=== PATIENT | male | born 1935 | race Caucasian/White ===

== ENCOUNTER 2017-03-18 16:06 | Emergency (ER) | payer MEDICARE, BC ==
[2017-03-18 16:48] LABS: WBC (NOT ORDERED) (RFLEX) 0 (0-5)
[2017-03-18 16:59] LABS: ASCORBIC ACID (UR NOT ORDER) NEG (NEG); BILIRUBIN, URINE NEGATIVE (NEG); ER URINALYSIS TAT 0 Hrs 12 Mins; KETONE, URINE NEGATIVE (NEG); LEUKOCYTE ESTERASE(NOT OR NEG (NEG); NITRITE (URINE) NEG (NEG)
[2017-03-18 17:07] LABS: BASOPHILS 0.2 %; BASOPHILS ABSOLUTE 0.01 10/3/uL (0.0-0.16); EOSINOPHILS 0.9 %; EOSINOPHILS ABSOLUTE 0.05 10/3/uL (0.0-0.53); HEMATOCRIT 30.4 % (40.0-51.0); HEMOGLOBIN 10.1 g/dL (13.6-17.8); IMMATURE GRANULOCYTES 0.9 %; IMMATURE GRANULOCYTES ABSOLUTE 0.05 10/3/uL (0.0-0.11); LYMPHOCYTES 8.2 %; LYMPHOCYTES ABSOLUTE 0.46 10/3/uL (0.67-4.30); MEAN CORPUS HGB CONC 33.2 g/dL (32.0-36.0); MEAN CORPUSCULAR HEMOGLOB 30.2 pg (26.0-34.0); MEAN PLATELET VOLUME 10.6 fL (9.2-13.0); MONOCYTES 6.6 %; MONOCYTES ABSOLUTE 0.37 10/3/uL (0.21-1.20); NEUTROPHILS 83.2 %; NEUTROPHILS ABSOLUTE 4.69 10/3/uL (2.02-8.40); RBC DISTRIBUTION WIDTH 15.8 % (12.0-16.0); WHITE BLOOD CELLS 5.6 10/3/uL (4.5-10.5)
[2017-03-18] MEDS ORDERED: P10 PO (17:07)
[2017-03-18] MEDS ORDERED: Z100 PO (17:07)
[2017-03-18] MEDS ORDERED: LOP25 PO (17:07)
[2017-03-18 17:08] LABS: A/G RATIO 0.7 (0.7-1.9); ALBUMIN 2.4 G/DL (3.5-5.0); ALKALINE PHOSPHATASE 64 U/L (45-117); BUN (BLOOD UREA NITROGEN) 39 MG/DL (6-23); CHLORIDE, SERUM 109 MMOL/L (96-112); CO2 (CARBON DIOXIDE) 22 MMOL/L (24-34); CREATININE 1.79 MG/DL (0.70-1.30); GFR AFRICAN AMERICAN 40 ML/MIN (>=60); GFR NON AFRICAN AMERICAN 35 ML/MIN (>=60); GLOBULIN 3.4 G/DL (2.5-4.1); GLUCOSE, SERUM 130 MG/DL (60-99); MANUAL DIFF NO %; PLATELET COUNT 145 10/3/uL (150-400); POTASSIUM, SERUM 4.1 MMOL/L (3.5-5.3); RED CELL COUNT 3.34 10/6/uL (4.7-6.1); SGOT(AST) 70 U/L (5-40); SGPT(ALT) 74 U/L (5-65); SODIUM, SERUM 140 MMOL/L (135-148); TOTAL BILIRUBIN 0.4 MG/DL (0-1.2); TOTAL PROTEIN 5.8 G/DL (6.0-8.5)
[2017-03-18] MEDS ORDERED: FERROUS SULF325 M1 PO (17:08)
[2017-03-18] MEDS ORDERED: VITD PO (17:08)
[2017-03-18] MEDS ORDERED: FLOMAX4 PO (17:08)
[2017-03-18] MEDS ORDERED: THERGRANM PO (17:08)
[2017-03-18] MEDS ORDERED: OS500+D PO (17:08)
[2017-03-18 17:09] LABS: ER CBC TAT 0 Hrs 20 Mins
[2017-03-18] MEDS ORDERED: LEVAQUIN750 MG PO (17:09)
[2017-03-18] MEDS ORDERED: ACET500CAP PO (17:09)
[2017-03-18] MEDS ORDERED: MAG OXIDE250 MG PO (17:09)
[2017-03-18] MEDS ORDERED: VITC500 PO (17:10)
== END 2017-03-18 21:40 | disposition home or self-care (01) ==
LOC: ER 16:06
PROVIDERS: Emergency Medicine
DX: N39.0 Urinary tract infection, site not specified (principal); Z87.01 Personal history of pneumonia (recurrent); I48.91 Unspecified atrial fibrillation; G47.30 Sleep apnea, unspecified; Z88.8 Allergy status to other drugs, medicaments and biological substances; Z79.52 Long term (current) use of systemic steroids; Z79.899 Other long term (current) drug therapy
CPT/HCPCS: 71010; 71250; 74176; 80053; 81001; 83605; 84145; 85025; 87040; 93005; 99285